=== PATIENT | female | born 1970 | race American Indian/Alaskan Native ===

== ENCOUNTER 2017-11-09 21:37 | Inpatient (IN) | payer MEDICAID ==
[~2017-11-09] VITALS: Ht 165.1 cm; Wt 105.5 kg
[~2017-11-09 21:37] MED LIST: COU5T PO; DOCU-28 PO; METF500T PO
[2017-11-09 22:27] LABS: INR 1.8 INR; PARTIAL THROMBOPLASTIN TIME 31 SECONDS (22-32); PROTHROMBIN TIME 17.8 SECONDS (9.0-12.0)
[2017-11-09 22:32] LABS: ALANINE AMINOTRANSFERASE 81 U/L (12-78); ALBUMIN 3.6 G/DL (3.4-5.0); ALKALINE PHOSPHATASE 135 IU/L (46-116); ANION GAP 10 (8-16); ASPARTATE AMINO TRANSFERASE 41 U/L (10-37); BILIRUBIN,TOTAL 0.5 MG/DL (0.1-1.0); BLOOD UREA NITROGEN 16 MG/DL (7-18); CALCIUM 8.6 MG/DL (8.5-10.1); CHLORIDE 105 MMOL/L (99-107); CREATININE 0.89 MG/DL (0.40-0.90); GLUCOSE 224 MG/DL (70-104); POTASSIUM 3.9 MMOL/L (3.5-5.1); SODIUM 142 MMOL/L (135-145); TOTAL CARBON DIOXIDE 27.1 MMOL/L (24-32); TOTAL PROTEIN 7.2 G/DL (6.4-8.2); eGFR 68 ML/MIN
[2017-11-09] MEDS ORDERED: aspirin 81mg tab.chew PO ONE (22:40)
[2017-11-09 23:07] LABS: BASOPHILS # (AUTO) 0.1 X10'3 (0-0.2); BASOPHILS % (AUTO) 0.9 % (0-1); EOSINOPHILS # (AUTO) 0.1 X10'3 (0-0.9); EOSINOPHILS % (AUTO) 2.6 % (0-6); HEMATOCRIT 42.6 % (35.0-45.0); LYMPHOCYTES # (AUTO) 2.2 X10'3 (1.1-4.8); LYMPHOCYTES % (AUTO) 38.9 % (21-51); MEAN CORPUSCULAR HEMOGLOBIN 33.2 PG (27.0-31.0); MEAN CORPUSCULAR HGB CONC 35.1 % (33.0-36.5); MEAN CORPUSCULAR VOLUME 94.5 FL (78-98); MEAN PLATELET VOLUME 8.7 FL (7.4-10.4); MONOCYTES # (AUTO) 0.5 X10'3 (0-0.9); MONOCYTES % (AUTO) 8.6 % (2-12); NEUTROPHILS # (AUTO) 2.8 X10'3 (1.8-7.7); PLATELET COUNT 195 X10'3 (140-440); RED BLOOD COUNT 4.51 X10'6 (4.20-5.60); RED CELL DISTRIBUTION WIDTH 12.5 % (11.5-14.5); WHITE BLOOD COUNT 5.6 X10'3 (4.5-11.0)
[2017-11-09 23:42] LABS: D-DIMER 0.35 MG/L FEU (0-0.50)
[2017-11-09] MEDS ORDERED: METF500T PO (23:44)
[2017-11-09] MEDS ORDERED: BUPR-94 PO (23:44)
[2017-11-09] MEDS ORDERED: WARF10TA50 PO (23:44)
[2017-11-10] MEDS ORDERED: normal saline 1000ml 1,000 ML IV SCH (00:02)
[2017-11-10] MEDS ORDERED: albuterol 2.5 MG/3 ML nebule NEB PRN (00:05)
[2017-11-10] MEDS ORDERED: morphine 2 MG/ML inj. syringe IV PRN ×2 (00:05)
[2017-11-10] MEDS ORDERED: magnesium hydroxide 30ml (MOM) UD suspension PO PRN (00:05)
[2017-11-10] MEDS ORDERED: magnesium Cl slow-release 64mg tablet PO PRN (00:05)
[2017-11-10] MEDS ORDERED: ipratropium/albuterol 3ml nebule NEB PRN (00:05)
[2017-11-10] MEDS ORDERED: magnesium 4gm in 100ml NS 100 ML IV PRN (00:05)
[2017-11-10] MEDS ORDERED: ondansetron/PF 4mg/2ml inj IV PRN (00:05)
[2017-11-10] MEDS ORDERED: magnesium 2GM in 50ml NS 50 ML IV PRN (00:05)
[2017-11-10] MEDS ORDERED: acetaminophen 325mg tablet PO PRN (00:05)
[2017-11-10] MEDS ORDERED: potassium Cl 40MEQ/NS 500ml 500 ML IV PRN ×2 (00:05)
[2017-11-10] MEDS ORDERED: mag hydrox/Alum hydrox/simeth 30ml oral suspension PO PRN (00:05)
[2017-11-10] MEDS ORDERED: potassium Cl 20 mEq SR tablet PO PRN ×2 (00:05)
[2017-11-10 01:24] LABS: HEMOGLOBIN A1C 7.7 % (4.5-6.2)
[2017-11-10 03:00] VITALS: BP 113/68
[2017-11-10 06:00] VITALS: BP 132/76
[2017-11-10 06:36] LABS: URINE AMPHETAMINE SCREEN POSITIVE (Neg); URINE BARBITUATE SCREEN NEGATIVE (Neg); URINE BENZODIAZEPINES SCREEN NEGATIVE (Neg); URINE CANNABINOID SCREEN NEGATIVE (Neg); URINE COCAINE SCREEN NEGATIVE (Neg); URINE METHADONE SCREEN NEGATIVE (Neg); URINE OPIATE SCREEN NEGATIVE (Neg); URINE PHENCYCLIDINE SCREEN NEGATIVE (Neg)
[2017-11-10] MEDS ORDERED: metFORMIN 500mg tablet PO SCH (07:30)
[2017-11-10] MEDS ORDERED: K and/or MAG REPLACEMENT MC SCH (08:00)
[2017-11-10] MEDS ORDERED: buproprion 150mg XL (24-hour) tablet PO SCH (08:00)
[2017-11-10] MEDS ORDERED: buPROPion SR 150mg tablet PO SCH (08:00)
[2017-11-10 11:00] VITALS: BP 113/66
[2017-11-10] MEDS ORDERED: warfarin 3mg tablet PO SCH (21:00)
[2017-11-10] MEDS ORDERED: temazepam 15mg capsule PO PRN (21:00)
== END 2017-11-10 14:00 | disposition home or self-care (01) | DRG 756 ==
LOC: ER 21:38 → ED HOLD 11-10 00:02 → PCU 3S 11-10 01:10
PROVIDERS: ADMIT Internal Medicine; ATTEND Internal Medicine
DX: F41.9 Anxiety disorder, unspecified (principal); E11.22 Type 2 diabetes mellitus with diabetic chronic kidney disease; I25.2 Old myocardial infarction; I25.10 Atherosclerotic heart disease of native coronary artery without angina pectoris; E66.01 Morbid (severe) obesity due to excess calories; R79.1 Abnormal coagulation profile; E11.65 Type 2 diabetes mellitus with hyperglycemia; F15.90 Other stimulant use, unspecified, uncomplicated; F17.210 Nicotine dependence, cigarettes, uncomplicated; I49.9 Cardiac arrhythmia, unspecified; F31.9 Bipolar disorder, unspecified; J44.9 Chronic obstructive pulmonary disease, unspecified; N18.9 Chronic kidney disease, unspecified; T45.515A Adverse effect of anticoagulants, initial encounter; Z79.01 Long term (current) use of anticoagulants; Z79.84 Long term (current) use of oral hypoglycemic drugs; Z86.711 Personal history of pulmonary embolism; Z90.710 Acquired absence of both cervix and uterus; Z68.38 Body mass index [BMI] 38.0-38.9, adult; Z71.6 Tobacco abuse counseling
CPT/HCPCS: 36415; 71045; 73030; 80053; 80305; 82948; 83036; 84484; 85025; 85379; 85610; 85730; 87070; 93005; 93306; 94760; 99285; J7030

== ENCOUNTER 2019-09-24 07:20 | Emergency (ER) | payer MEDICAID ==
[~2019-09-24] VITALS: Ht 157.5 cm; Wt 105.0 kg
[~2019-09-24 07:20] MED LIST changes: +BUPR-94 PO; -COU5T PO; -DOCU-28 PO; +WARF10TA50 PO
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
[2019-09-24] MEDS ORDERED: aspirin 81mg tab.chew PO ONE (07:55)
[2019-09-24 08:27] LABS: BASOPHILS # (AUTO) 0.1 X10'3 (0-0.2); BASOPHILS % (AUTO) 1.7 % (0-1); EOSINOPHILS # (AUTO) 0.1 X10'3 (0-0.9); EOSINOPHILS % (AUTO) 2.9 % (0-6); HEMATOCRIT 39.7 % (35.0-45.0); HEMOGLOBIN 13.8 g/dl (12.0-16.0); LYMPHOCYTES # (AUTO) 2.5 X10'3 (1.1-4.8); LYMPHOCYTES % (AUTO) 52.5 % (21-51); MEAN CORPUSCULAR HEMOGLOBIN 33.3 PG (27.0-31.0); MEAN CORPUSCULAR HGB CONC 34.8 g/dL (33.0-36.5); MEAN CORPUSCULAR VOLUME 95.8 FL (78-98); MONOCYTES # (AUTO) 0.5 X10'3 (0-0.9); MONOCYTES % (AUTO) 10.9 % (2-12); NEUTROPHILS # (AUTO) 1.5 X10'3 (1.8-7.7); PLATELET COUNT 167 X10'3 (140-440); RED BLOOD COUNT 4.14 X10'6 (4.20-5.60); RED CELL DISTRIBUTION WIDTH 12.9 % (11.5-14.5); WHITE BLOOD COUNT 4.7 X10'3 (4.5-11.0)
[2019-09-24 08:38] LABS: ALBUMIN 3.3 G/DL (3.4-5.0); ANION GAP 4 (8-16); BILIRUBIN,TOTAL 0.3 MG/DL (0.1-1.0); BLOOD UREA NITROGEN 17 MG/DL (7-18); BUN/CREATININE RATIO 22.4 (6.6-38.0); CALCIUM 8.4 MG/DL (8.5-10.1); CHLORIDE 105 MMOL/L (99-107); CREATININE 0.76 MG/DL (0.40-0.90); GLUCOSE 233 MG/DL (70-104); POTASSIUM 3.7 MMOL/L (3.5-5.1); SODIUM 137 MMOL/L (135-145); TOTAL CARBON DIOXIDE 28.2 MMOL/L (24-32); TOTAL PROTEIN 6.8 G/DL (6.4-8.2); eGFR 81 ML/MIN
[2019-09-24 08:39] LABS: ALANINE AMINOTRANSFERASE 141 U/L (12-78); ALBUMIN/GLOBULIN RATIO 0.9 (1.1-1.5); ALKALINE PHOSPHATASE 120 IU/L (46-116); ASPARTATE AMINO TRANSFERASE 84 U/L (10-37)
[2019-09-24] MEDS ORDERED: iohexol 350MG/ML 100ml bottle IV ONE (08:58)
[2019-09-24 09:46] VITALS: BP 116/80
[2019-09-24 10:46] LABS: PLATELET ESTIMATE NORMAL; TOTAL CELLS COUNTED 100
== END 2019-09-24 10:36 | disposition home or self-care (01) ==
LOC: ER 07:21
DX: R07.89 Other chest pain (principal); R91.1 Solitary pulmonary nodule; M79.602 Pain in left arm; R42 Dizziness and giddiness; J44.9 Chronic obstructive pulmonary disease, unspecified; E11.9 Type 2 diabetes mellitus without complications; F31.9 Bipolar disorder, unspecified; F15.90 Other stimulant use, unspecified, uncomplicated; Z86.711 Personal history of pulmonary embolism; Z86.718 Personal history of other venous thrombosis and embolism; Z90.710 Acquired absence of both cervix and uterus; Z98.890 Other specified postprocedural states; Z79.899 Other long term (current) drug therapy; Z79.01 Long term (current) use of anticoagulants
CPT/HCPCS: 71045; 71275; 80053; 83880; 84484; 85025; 85610; 93005; 93970; 93978; 99284; Q9967

== ENCOUNTER 2020-12-11 05:00 | Emergency (ER) | payer MEDICAID ==
[~2020-12-11] VITALS: Ht 165.1 cm; Wt 106.8 kg
[2020-12-11 05:38] LABS: HEMOGLOBIN 15.1 g/dl (12.0-16.0); LYMPHOCYTES # (AUTO) 2.4 X10'3 (1.1-4.8); MONOCYTES # (AUTO) 0.4 X10'3 (0-0.9); NEUTROPHILS # (AUTO) 2.2 X10'3 (1.8-7.7)
[2020-12-11 05:40] LABS: BASOPHILS % (AUTO) 0.6 % (0-1); EOSINOPHILS % (AUTO) 0.4 % (0-6); LYMPHOCYTES % (AUTO) 47.4 % (21-51); MEAN CORPUSCULAR HEMOGLOBIN 31.1 PG (27.0-31.0); MEAN CORPUSCULAR HGB CONC 34.2 g/dL (33.0-36.5); MEAN CORPUSCULAR VOLUME 91.1 FL (78-98); MEAN PLATELET VOLUME 8.7 FL (7.4-10.4); MONOCYTES % (AUTO) 8.5 % (2-12); NEUTROPHILS % (AUTO) 43.1 % (42-75); PLATELET COUNT 157 X10'3 (140-440); RED BLOOD COUNT 4.84 X10'6 (4.20-5.60); RED CELL DISTRIBUTION WIDTH 13.3 % (11.5-14.5)
[2020-12-11 05:50] LABS: ALANINE AMINOTRANSFERASE 80 U/L (12-78); ALBUMIN 3.3 G/DL (3.4-5.0); ALBUMIN/GLOBULIN RATIO 0.7 (1.1-1.5); ALKALINE PHOSPHATASE 132 IU/L (46-116); ANION GAP 7 (8-16); ASPARTATE AMINO TRANSFERASE 60 U/L (10-37); BILIRUBIN,TOTAL 0.4 MG/DL (0.1-1.0); BLOOD UREA NITROGEN 11 MG/DL (7-18); BUN/CREATININE RATIO 12.2 (6.6-38.0); CALCIUM 8.8 MG/DL (8.5-10.1); CHLORIDE 102 MMOL/L (99-107); GLUCOSE 195 MG/DL (70-104); POTASSIUM 3.7 MMOL/L (3.5-5.1); SODIUM 136 MMOL/L (135-145); TOTAL CARBON DIOXIDE 27.3 MMOL/L (24-32); TOTAL PROTEIN 7.8 G/DL (6.4-8.2); eGFR 66 ML/MIN
[2020-12-11 06:08] VITALS: BP 145/90
== END 2020-12-11 06:10 | disposition home or self-care (01) ==
LOC: ER 05:01
DX: R07.89 Other chest pain (principal); M79.602 Pain in left arm; J44.9 Chronic obstructive pulmonary disease, unspecified; E11.9 Type 2 diabetes mellitus without complications; F31.9 Bipolar disorder, unspecified; F15.90 Other stimulant use, unspecified, uncomplicated; Z87.01 Personal history of pneumonia (recurrent); Z87.440 Personal history of urinary (tract) infections; Z86.718 Personal history of other venous thrombosis and embolism; Z90.710 Acquired absence of both cervix and uterus; Z90.89 Acquired absence of other organs; Z98.890 Other specified postprocedural states; Z79.899 Other long term (current) drug therapy
CPT/HCPCS: 36415; 71045; 80053; 84484; 85025; 93005; 99285

== ENCOUNTER 2022-01-15 19:30 | Emergency (ER) | payer MEDICAID ==
[~2022-01-15] VITALS: Ht 165.1 cm; Wt 106.0 kg
[2022-01-15 20:07] VITALS: BP 155/88
[2022-01-15] MEDS ORDERED: NEOM10SO7 RIGHT EAR (20:54)
== END 2022-01-15 21:05 | disposition home or self-care (01) ==
LOC: ER 19:31
DX: H60.91 Unspecified otitis externa, right ear (principal); H92.01 Otalgia, right ear; J44.9 Chronic obstructive pulmonary disease, unspecified; E11.9 Type 2 diabetes mellitus without complications; F31.9 Bipolar disorder, unspecified; F15.90 Other stimulant use, unspecified, uncomplicated; Z86.711 Personal history of pulmonary embolism; Z87.440 Personal history of urinary (tract) infections; Z86.718 Personal history of other venous thrombosis and embolism; Z90.710 Acquired absence of both cervix and uterus; Z90.89 Acquired absence of other organs; Z79.899 Other long term (current) drug therapy
CPT/HCPCS: 99283

== ENCOUNTER 2022-12-17 22:41 | Emergency (ER) | payer MEDICAID ==
[~2022-12-17] VITALS: Ht 165.1 cm; Wt 106.0 kg
[~2022-12-17 22:41] MED LIST changes: +NEOM10SO7 RIGHT EAR
[2022-12-17 22:55] VITALS: BP 142/81
[2022-12-17 23:45] LABS: BASOPHILS # (AUTO) 0.1 X10'3 (0-0.2); BASOPHILS % (AUTO) 1.3 % (0-1); EOSINOPHILS # (AUTO) 0.2 X10'3 (0-0.9); EOSINOPHILS % (AUTO) 2.7 % (0-6); HEMATOCRIT 43.5 % (35.0-45.0); HEMOGLOBIN 14.7 g/dl (12.0-16.0); LYMPHOCYTES # (AUTO) 3.4 X10'3 (1.1-4.8); LYMPHOCYTES % (AUTO) 48.1 % (21-51); MEAN CORPUSCULAR HEMOGLOBIN 30.8 PG (27.0-31.0); MEAN CORPUSCULAR HGB CONC 33.8 g/dL (33.0-36.5); MEAN CORPUSCULAR VOLUME 90.9 FL (78-98); MEAN PLATELET VOLUME 8.5 FL (7.4-10.4); MONOCYTES # (AUTO) 0.5 X10'3 (0-0.9); MONOCYTES % (AUTO) 6.7 % (2-12); NEUTROPHILS # (AUTO) 2.9 X10'3 (1.8-7.7); NEUTROPHILS % (AUTO) 41.2 % (42-75); PLATELET COUNT 202 X10'3 (140-440); RED BLOOD COUNT 4.79 X10'6 (4.20-5.60); RED CELL DISTRIBUTION WIDTH 13.8 % (11.5-14.5)
[2022-12-17 23:57] LABS: ALANINE AMINOTRANSFERASE 46 U/L (12-78); ALBUMIN 3.8 G/DL (3.4-5.0); ALBUMIN/GLOBULIN RATIO 0.9 (1.1-1.5); ALKALINE PHOSPHATASE 165 IU/L (46-116); ANION GAP 9 (8-16); ASPARTATE AMINO TRANSFERASE 35 U/L (10-37); BILIRUBIN,TOTAL 0.4 MG/DL (0.1-1.0); BLOOD UREA NITROGEN 14 MG/DL (7-18); BUN/CREATININE RATIO 17.5 (6.6-38.0); CALCIUM 9.5 MG/DL (8.5-10.1); CHLORIDE 103 MMOL/L (99-107); GLUCOSE 166 MG/DL (70-104); SODIUM 140 MMOL/L (135-145); TOTAL CARBON DIOXIDE 27.7 MMOL/L (24-32); TOTAL PROTEIN 8.2 G/DL (6.4-8.2); eGFR 75 ML/MIN
[2022-12-18] MEDS ORDERED: acetaminophen 325mg tablet PO ONE (05:20)
== END 2022-12-18 05:23 | disposition home or self-care (01) ==
LOC: ER 22:42
DX: R51.9 Headache, unspecified (principal); J44.9 Chronic obstructive pulmonary disease, unspecified; E11.9 Type 2 diabetes mellitus without complications; F31.9 Bipolar disorder, unspecified; F15.20 Other stimulant dependence, uncomplicated; Z98.890 Other specified postprocedural states; Z90.710 Acquired absence of both cervix and uterus
CPT/HCPCS: 36415; 70450; 80053; 85025; 85379; 93005; 99285; J7030

== ENCOUNTER 2025-08-04 07:35 | Day surgery (SDC) | payer MEDICAID ==
[~2025-08-04] VITALS: Ht 165.1 cm; Wt 95.3 kg
[~2025-08-04 07:35] MED LIST changes: -BUPR-94 PO; -METF500T PO; -NEOM10SO7 RIGHT EAR; +RIVA20TA PO; +TIRZ10PE SQ; -WARF10TA50 PO
[2025-08-04 07:44] VITALS: BP 116/76; PULSE 76; RESP 16; TEMP 96.9; O2SAT 100
[2025-08-04] MEDS ORDERED: simethicone 40mg/0.6ml oral drops 15ml ONE (08:00)
[2025-08-04] MEDS: ringers solution, lacted 1,000 ML IV SCH (08:07)
[2025-08-04] MEDS ORDERED: fentaNYL/PF 50MCG/1 ML 2ML syringe ONE (09:28)
[2025-08-04] MEDS ORDERED: MIDAZolam 1 MG/ML 5ML VIAL ONE (09:29)
[2025-08-04 10:05] VITALS: BP 118/83; PULSE 70; RESP 16; O2SAT 98
[2025-08-04 10:10] VITALS: BP 120/82; PULSE 71; RESP 19; O2SAT 98
[2025-08-04 10:20] VITALS: BP 120/83; PULSE 70; RESP 18; O2SAT 100
[2025-08-04 10:30] VITALS: BP 115/77; PULSE 71; RESP 16; O2SAT 100
[2025-08-04 10:40] VITALS: BP 120/80; PULSE 72; RESP 16; O2SAT 98
--- NOTE | 2025-08-05 17:55 | PATHOLOGY REPORT ---
[facility] [address] [place] [address] SURGICAL PATHOLOGY REPORT CaseNumber: [id number] Surgeon:Sree Stovall PA-C CLINICAL INFORMATION CLINICAL INFORMATION: Screening. DIAGNOSIS DIAGNOSIS: COLON, RECTAL; BIOPSY - HYPERPLASTIC POLYP. MICROSCOPIC DESCRIPTION MICROSCOPIC DESCRIPTION: One slide is examined. Performed. GROSS DESCRIPTION GROSS DESCRIPTION: Received in a container of formalin labeled with the patient's name, number, and "rectal polyp" is a 0.9 x 0.7 x 0.2 cm piece of hamilton tissue. The specimen is sectioned. The specimen is entirely submitted as A1. The time at which the specimen was removed was 936. The time at which the specimen was placed in formalin was 09. Electronically signed by: Yobani Grey M.D. 08/05/2025 5:21:00 PM
== END 2025-08-04 10:45 | disposition home or self-care (01) ==
LOC: GI LAB 07:35
PROVIDERS: ATTEND Internal Medicine Gastroenterology
DX: Z12.11 Encounter for screening for malignant neoplasm of colon (principal); K57.30 Diverticulosis of large intestine without perforation or abscess without bleeding; K63.5 Polyp of colon; K62.1 Rectal polyp; E11.9 Type 2 diabetes mellitus without complications; J44.9 Chronic obstructive pulmonary disease, unspecified; G47.33 Obstructive sleep apnea (adult) (pediatric); E66.9 Obesity, unspecified; F31.9 Bipolar disorder, unspecified; Z79.01 Long term (current) use of anticoagulants; Z79.899 Other long term (current) drug therapy; Z90.49 Acquired absence of other specified parts of digestive tract; Z90.89 Acquired absence of other organs; Z98.891 History of uterine scar from previous surgery; Z98.890 Other specified postprocedural states; Z68.34 Body mass index [BMI] 34.0-34.9, adult
CPT/HCPCS: 45385; J2250; J3010; J7120; Z7512; 99152; 99153; A4620